=== PATIENT | female | born 1950 | race Caucasian/White ===

== ENCOUNTER 2024-11-04 09:41 | Outpatient (REF) | payer MEDICAID, SELFPAY ==
[2024-11-04 11:35] LABS: Carbamazepine Tegretol 5.5 mcg/mL (5.0-12.0)
== END 2024-11-04 09:42 | disposition home or self-care (01) ==
LOC: HO.LAB 09:41
PROVIDERS: PCP Internal Medicine; Visit Provider Psychiatry & Neurology Neurology
DX: G40.909 Epilepsy, unspecified, not intractable, without status epilepticus (principal)
CPT/HCPCS: 36415; 80156

== ENCOUNTER 2025-05-31 16:04 | Outpatient (AMB) | payer MEDICAID, SELFPAY ==
--- OUTSIDE RECORDS SUMMARY | 2025-05-30 10:00 | XMS_ITS | Encounter Summary ---
Author Organization [facility] Address [address] [place] [address] Care Team Providers Care Refractory Bricklayer Name Role Phone Roxana Valentine MD Primary Care Provider Reason for Visit * Reason Comments Foot Pain Bilateral bunions (P rimary Dx); Arthritis of both feet; Ingrowing right great toenail; Hammertoes of both feet Encounter Details Date Type Department Care Team (Late st Contact Info) Description 05/30/2025 10:00 AM EDT Office Visit Orthopedic Surgery - [place] [address] [facility] [address] [place] [phone] Estrada Payne, DPM 175 [facility] 250 [place] [address] Pain in both feet (Primary Dx); Ingrown right big toenail; Hammertoes of both feet; Arthritis of both feet Social History Tobacco Use Types Packs/Day Years Used Date Smoking Tobacco: Never Smokeless Tobacco: Never Alcohol Use Standard Drinks/Week Comments Not Currently 0 (1 standard drink = 0.6 oz pur e alcohol) Housing Instability Answer Date Recorde d Are you worried that in the next 2 months you may not have stable housing? No 09/16/2024 Food Access & Nutrition Answer Date Rec orded Do you have access to a vari ety of food including fruits and vegetables? Yes 09/16/2024 Access to Healthcare Answer Date Record ed Within the last 3 months, ho w many times did you visit the emergency department for your medical care? 0 09/16/2024 Health Literacy Answer Date Recorded How often do you need to hav e someone help you when you read instructions, pamphlets, or other written material from your doctor or pharmacy? Always 09/16/2024 Caregiver: How often do you need to have someone help you when you read instructions, pamphlets, or other written material from your doctor or pharmacy? Not on file 09/16/2024 Financial Risk Answer Date Recorded How hard is it for you to pa y for the very basics like food, housing, medical care, and air conditioning / heating? Unable to respond 09/16/2024 Transportation Answer Date Recorded Has the lack of transportati on kept you from meetings, work, or from getting things needed for daily living? No Has the lack of transportati on kept you from medical appointments or from getting medications? No 09/16/2024 Social Isolation Answer Date Recorded How often do you feel lonely or isolated from th ose around you? Rarely 09/16/2024 Food Risk Answer Date Recorded Within the past 12 months we worried whether our food would run out before we got money to buy more. Never true 09/16/2024 Within the past 12 months th e food we bought just didn't last and we didn't have money to get more. Never true 09/16/2024 Dependent Care Answer Date Recorded Do you need help finding or paying for care for your loved ones. For example, child care centre manager or elderly care for an older adult? No 09/16/2024 Education Answer Date Recorded Do you think completing more education or training, like finishing a GED, going to college, or learning a trade, would be helpful for you? Unable to respond 09/16/2024 Employment and Income Answer Date Recor ded During the last four weeks, have you been actively looking for work? No 09/16/2024 Living Situation Answer Date Recorded What is your living situation? Unrecognized valu e 09/16/2024 Comments No Sex and Gender Information Value Date Recorded Sex Assigned at Not on file Legal Sex Female 8:04 AM EST Gender Identity Not on file Sexual Orientation Not on file documented as of this encounter Progress Notes * Estrada Payne DPM - 05/30/2025 10:00 AM EDT Referring MD: Jose Last PCP visit: 02/25/2025 IDENTIFIER: Rosita is a 75 y.o. year old female who presents for consultation. CC: Bilateral foot pain HPI: 75-year-old female returns office with chief complaint of bilateral foot pain. Patient notes that she has continued pain within the right and left toes. Patient has had ingrown toenails in the past and is using soaking exercises. Patient notes her nails continue be thickened and misshapened causingpain when ambulating longer distances. ROS: GENERAL: Pt denies nausea, fever, vomiting, chills, or shortness of breath. Pt in NAD. CARDIOLOGY: pt denies chest pain, palpitations LUNGS: pt denies shortness of breath MUSCULOSKELETAL: See HPI, otherwise no joint pain or swelling, back pain, or muscle pain. SKIN: see HPI, otherwise no lesions, rash or itching NEURO: No persistent headache, weakness or numbness The remainder of the review of systems is noncontributory PAST MEDICAL HISTORY: Patient Active Problem List Diagnosis Syncope SOB (shortness of breath) Seizure disorder (CMS/HCC V24, CMS/HCC V28) Osteopenia Hypertension Hyperlipidemia Gastroesophageal reflux disease Bradycardia Bile reflux gastritis Adenomatous polyp of colon Pacemaker SOCIAL HISTORY: Social History Tobacco Use Smoking status: Never Smokeless tobacco: Never Substance Use Topics Alcohol use: Not Currently ACTIVE MEDICATIONS: No outpatient medications have been marked as taking for the 05/30/25 encounter (Office Visit) Tabitha Payne DPM. ALLERGIES: @ALL@ PHYSICAL EXAM: There were no vitals taken for this visit. PODIATRIC EXAMINATION: GENERAL: Patient appears well nourished, with NAD. VASCULAR: Dorsalis pedis pulses are 2/4 bilaterally and Posterior tibial pulses are 2/4 bilaterally. Capillary filling time within normal limits the digits. No pallor on elevation or rubor on dependency. Positive hair growth. Some varicosities. +2 pitting edema. Denies rest pain or claudication pain. NEUROLOGICAL: Sharp/dull sensation intact, protective sensation intact 10/10 with 5.07 semmes tank bilaterally, vibratory sensation with tuning fork intact to the tibial tuberosity. ORTHOPEDIC: Good muscle strength 5/5 of all flexors and extensors. Dorsi flexion of ankle ,10 degrees, plantar flexion WNL. No muscle atrophy. Continued arthritic changes to the tarsometatarsal jointbilaterally with palpable dorsal exostoses. Rigidly contracted digits 2 through 5 bilaterally. Continued bunion deformities bilaterally left greater than right with moderate HAV deformity. Curvature to the digits 2 through 5 DERMATOLOGICAL: Dry skin to the bottoms of the feet bilaterally. No purulent drainage. Return of pain to the medial lateral border of the great toes bilaterally BIOMECHANICS: STJ ROM wnl, MTJ ROM wnl, 1st MPJ ROM wnl. IMPRESSION: 1. Pain in both feet 2. Ingrown right big toenail 3. Hammertoes of both feet 4. Arthritis of both feet PLAN: Pt was seen and examined, history reviewed. Patient continues to have arthritic changes of the midtarsal joint secondary to arthritic breakdownof midtarsal joint. Patient instructed to wear more supportive insole in her shoe in order to limitthis pain Patient was once again educated on the use of assistive devices to ambulate if her balance feels unsteady. Patient encouraged to continue with increasing her activity level and walking as this will improve her stability and stance Patient was once again educated that she may require matrixectomy at a later date in order to prevent return of the ingrowth to the toenails which is causing pain on ambulation and close toed shoes Patient ducted to continue with current topical and antifungal medication to the nails in order to reduce thickness and discoloration Was once again educated on her bunion deformity and possible surgical intervention. Patient is happy with the current regimen she is taking Estrada Payne DPM documented in this encounter Plan of Treatment Upcoming Encounters Date Type Department Care Team (Late st Contact Info) Description 06/02/2025 10:00 AM EDT Office Visit Urogynecology [address] [phone] Wen Benitez MD 580 [facility] [address] [place] [address] 06/09/2025 9:30 AM EDT Office Visit Orthopedic Surgery - [place] 175 [facility] 140 [place] [phone] Francesco Li MD 175 [place] [address] 06/28/2025 3:00 PM EST Office Visit Adult Medicine [facility] 230 [place] [address] Jose Alfredo Garcia PA 230 [place] [address] 07/14/2025 10:30 AM EST Office Visit Vascular Surgery - [place] [address] [facility] 210 [place] [phone] Sumaya Patel MD 230 [place] [phone] 07/28/2025 8:45 AM EST Office Visit Orthopedic Surgery - [place] [address] [facility] [address] [place] [address] Estrada Payne, DPM 175 [facility] 250 [place] [address] documented as of this encounter Visit Diagnoses Diagnosis Pain in both feet- Primary Ingrown right big toenail Ingrowing nail Hammertoes of both feet Arthritis of both feet documented in this encounter Additional Health Concerns Assessment Noted Time PHQ-9 Depression Total Score: 7 09/16/19 25 1:25 PM EST documented as of this encounter Care Teams Refractory Bricklayer Relationship Specialty Start Date End Date Roxana Valentine MD 101 [facility] 214 [place] [address] PCP - General Internal Medicine 11/16/21 documented as of this encounter
--- OUTSIDE RECORDS SUMMARY | 2025-05-31 09:00 | XMS_ITS | Encounter Summary ---
Author Organization [facility] Address [address] [place] [address] Care Team Providers Care Security Guard Supervisor Name Role Phone Roxana Valentine MD Primary Care Provider Reason for Visit * Reason Comments Pain Consult * Consultation (Routine) - Authorized Specialty Diagnoses / Procedures Referred By Reji granados Referred To Contact Orthopaedic Surgery Diagnoses Paronychia of finger of left hand Roxana Valentine MD 230 [place] [address] Phone: tel: fax: Celine Andrade PA 174 [facility] 140 [place] [address] Phone: tel: fax: Referral ID Status Reason Start Date Expiration Date Visits Requested Visits Authorized [id number] Authorized Specialty Services Required 02/25/2025 02/25/2026 1 1 Encounter Details Date Type Department Care Team ([facility] st Contact Info) Description 05/31/2025 9:00 AM EDT Consult Orthopedic Surgery - [place] 175 [facility] 140 [place] [phone] Celine Andrade PA [address] [place] [phone] Mucous cyst of digit of hand (Primary Dx) Social History Tobacco Use Types Packs/Day Years [...] care for your loved ones. For example, vocational childcare teacher or elderly care for an older adult? [...] on file documented as of this encounter Last Filed Vital Signs Vital Sign Reading Time Taken Comments Blood Pressure - - Pulse - - Temperature - - Respiratory Rate - - Oxygen Saturation - - Inhaled Oxygen Concentration - - Weight 74.4 kg (164 lb) 05/31/2025 9:01 AM EDT Height 152.4 cm (5') 05/31/2025 9:01 AM EDT Body Mass Index 32.03 05/31/2025 9:01 AM EDT documented in this encounter Progress Notes * VERNON Farris - 05/31/2025 9:00 AM EDT Images from the original note were not included. Referring MD:Roxana Valentine* Ms. Becker is a 75 y.o. year old female who presents for consultation regarding Chief Complaint Patient presents with Left Middle Finger - Pain, Consult . HPI: 75-year-old zlhlm-mcyn-kfeceacy female chief complaint of left long finger pain, cyst and infection. Patient is Swazi-speaking and her daughter is aiding in interpreting and history. Patient has had a mucous cyst at the left long finger for 2 to 3 years. It intermittently gets inflamed and painful. Over this past year she has been on antibiotics twice by her primary. She is not currently on antibiotics. She has been soaking the finger in Epsom salt. Sometimes there is some yellowish drainage from the cyst. No diabetes she does have a pacemaker. PAST MEDICAL HISTORY: Medical History[1] PAST SURGICAL HISTORY: Surgical History[2] ACTIVE PROBLEMS LIST: Problem List[3] ACTIVE MEDICATIONS: Medications Taking[4] ALLERGIES: Current Allergies[5] PHYSICAL EXAM: Visit Vitals Ht 1.524 m (60 ) Wt 74.4 kg (164 lb) BMI 32.03 kg/m?? OB Status Postmenopausal Smoking Status Never BSA 1.72 m?? APPEARANCE: Alert and in no acute distress EXTREMITIES: Left long finger significant osteoarthritis at the DIP joint. Ridging of the nail and mucous cyst that is mildly inflamed. She can make a light fist. LABS: none IMAGING: none ASSESSMENT AND PLAN: 1. Mucous cyst of digit of hand The details of the visit were reviewed with the patient. Pertinent history, and objective findings were reviewed, along with the diagnoses: Left long finger mucous cyst. Discussed with patient treatment options. Discussed soaking the finger, discussed aspiration and discussed excisional biopsy under local. This has been there for 2 to 3 years and is bothersome. Would not recommend any further antibiotics. She wishes to consult regarding excision and an appointment was made for her to see . Aida Becker acknowledges understanding of the above plan and agrees to follow recommendations and/or take medications as prescribed. 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 Scaphoid fracture of wrist DX:Scaphoid fracture of wrist [2] Past Surgical History: Procedure Laterality Date CARDIAC SURGERY 1998 PROCEDURE: HISTORICAL HEART SURGERY(ASD,VSD,VALVES); COMMENT: cyst removal CHOLECYSTECTOMY 2017 PROCEDURE: HISTORICAL CHOLECYSTECTOMY OTHER SURGICAL HISTORY 1992 PROCEDURE: LA GSTRCT PRTL DSTL W/GASTRODUODENOSTOMY; COMMENT: due to stomah ulcer [3] Patient Active Problem List Diagnosis Syncope SOB (shortness of breath) Seizure disorder (CMS/HCC V24, CMS/HCC V28) Osteopenia Hypertension Hyperlipidemia Gastroesophageal reflux disease Bradycardia Bile reflux gastritis Adenomatous polyp of colon Pacemaker [4] No outpatient medications have been marked as taking for the 05/31/25 encounter (Consult) with VERNON Tiwari. [5] No Known Allergies documented in this encounter Plan of Treatment Upcoming Encounters Date Type Department Care Team (Late st Contact Info) Description 06/02/2025 10:00 AM EDT Office Visit Urogynecology - [place] [address] [place] [address] Wen Benitez MD 580 [facility] [address] [place] [address] 06/09/2025 9:30 AM EDT Office Visit Orthopedic Surgery [facility] 175 [facility] 140 [place] [address] Francesco Li MD 175 [place] [address] 06/28/2025 3:00 PM EST Office Visit Adult Medicine [facility] 230 [place] [address] Jose Alfredo Garcia PA [address] [place] [address] 07/14/2025 10:30 AM EST Office Visit Vascular Surgery [facility] [address] [place] [phone] Sumaya Patel MD [address] [place] [address] 07/28/2025 8:45 AM EST Office Visit Orthopedic Surgery - [place] [address] [facility] 250 [place] [address] Estrada Payne DPM 175 [facility] 250 [place] [address] documented as of this encounter Visit Diagnoses Diagnosis Mucous cyst of digit of hand- Primary documented in this encounter Orders Outpatient Referral Count Last Ordered Date On License Of [facility] st Ordered Date AMB REFERRAL TO ORTHOPEDIC 1 05/31/2025 documented in this encounter Additional Health Concerns Assessment Noted Time PHQ-9 Depression Total Score: 7 09/16/19 25 1:25 PM EST documented as of this encounter Care Teams Security Guard Supervisor Relationship Specialty Start Date End Date Roxana Valentine MD [address] [place] [address] PCP - General Internal Medicine 11/16/21 documented as of this encounter
--- NOTE | 2025-05-31 16:09 | MHC.OFFVIS ---
Intake Visit Reasons: 6 months f/u Electrical Engineering Intern Services: Electrical Engineering Intern Offered & Declined (daughter to translate) Accompanied by: Daughter Allergies No Known Allergies Allergy (Verified 05/31/25 16:14) Medication List - Last Reconciled 05/31/25 by Elizabeth Carter CNP aspirin 81 mg PO DAILY carbamazepine 100 mg PO BID diclofenac sodium 1% grams topical BID PRN fluoxetine 10 mg PO DAILY losartan 25 mg PO DAILY meclizine 25 mg PO TID PRN pyridoxine (vitamin B6) 50 mg PO DAILY rosuvastatin 10 mg PO DAILY sucralfate 10 mL PO QID HPI Comments Details: Taking carbamazepine 100mg twice a day. No seizures. For the last 2-3 months or so, she has been getting severe headache daily lasting 5 minutes each time. She described pain as dull and was usually to sides of head. No specific trigger identified. No jaw pain or claudication. No cold or flu-like illness. No falls. She had some dizziness and nausea in the car when turning and occasionally when turning in bed, and interested in vestibular therapy. Had PT for low back pain down right leg, worse with activity. This pain?happened about 1-2x/year, around spring and fall. On no seizure meds for 3 weeks since 05/04/2024. She compliants of side effects from Depakote with eyes feeling puffy. She stopped it. Then CBZ was sent, but she says she had side effects with it in [facility] so she did not start it. Then Lamotrigine was given but she read of possible side effects so did not start it. No further epiosdes of syncope since 08/23/23. She felt very weak for a minute . She was tight in her hands but no convulsions. No incontinence or tongue bite. Pacemaker is fine according to cardiology. 30 secs of confusion. Two previous presyncopal episodes for 5-7 minutes. No LOC. She has elevated BP. Then she feels a sh soind in her head. She has a history of recurrent syncope since the age of 25 with multiple fainting episodes with 5 time sduring with daughter. [facility] 2/ yr . In April 2022, she had a pacemaker inserted. Since then she's had one presyncopal episodes and another syncopal episode in March 2023 during which she suddenly fell while walking with a friend without any warning. She had a small fracture in the right hand. Since then she's felt fine. There's no chest pain or palpitation. There was no witnessed seizure. She has no history of coronary artery disease. The pacemaker was inserted because of periods of bradycardia She was on Keppra for a few months and then she started to feel sleepy and dizzy with it , so she stopped it 2 weeks ago. She is feeling better. [facility] Medical History (Updated 05/31/25 @ 16:23 by Elizabeth Cartre CNP) Dizziness Lumbar radiculopathy Syncope Review of Systems Const Denies chills, Denies daytime sleepiness, Reports difficulty sleeping, Denies fatigue, Denies fever(s), Denies frequent falls, Reports headache(s), Denies increased appetite, Denies poor appetite, Denies snoring, Denies weakness, Denies weight gain and Denies weight loss Eyes Denies loss of vision ENT Denies vertigo, Reports dizziness, Reports headache(s) and Denies neck pain Card Denies chest pain at rest, Denies chest pain with activity, Denies syncope, Denies leg edema, Denies palpitations, Denies dyspnea and Denies dyspnea on exertion Resp Denies cough, Denies dyspnea, Denies dyspnea on exertion and Denies snoring GI Denies abdominal pain, Denies constipation, Denies heartburn, Denies diarrhea and Denies nausea Denies urinary frequency, Denies urinary incontinence and Denies urinary urgency Musc Denies abnormal gait, Reports back pain, Denies myalgias, Denies arthralgias, Denies neck pain, Denies numbness and Denies tingling Neuro Denies abnormal gait, Denies vertigo, Reports dizziness, Denies syncope, Denies frequent falls, Reports headache(s), Denies lack of coordination, Denies loss of vision, Denies memory loss, Denies numbness, Denies Other visual disturbances, Denies restless legs, Denies seizure-like activity, Denies tingling, Denies paresthesias, Denies tremor(s) and Denies weakness Psych Denies anxiety, Denies depression, Denies auditory hallucinations, Denies memory loss and Denies visual hallucinations Endo Denies fatigue and Denies palpitations Physical Exam Const Other: General Appearance:? normal, in no acute distress. Heart:? S1, S2 normal, no murmurs. Lungs:? clear anteriorly and posteriorly. Musculoskeletal:? normal. Extremities:? no edema. Psych:? alert, oriented, cognitive function intact, cooperative with exam. Neuro Other: Abnormal Neurological Findings:?none.? Mental Status: alert and oriented X 3. Normal attention, orientation, memory, and affect. Cranial Nerves: Pupils are equal, round, and reactive to light. External ocular muscles are intact. Visual santillan are full, no ptosis. Face is symmetrical, no facial weakness or droop. Facial sensations are normal. Tongue protrudes in midline. Palate elevates symmetrically. Shoulder shrugging is normal Motor Examination: Normal muscle tone, bulk and strength. No atrophy or fasciculations. No drift of the extended upper extremities. DTR 2+. Plantars are flexor. Sensory Exam: Normal light touch, temperature, pinprick, vibration, and joint-position sensations. Rhomberg sign is absent. Coordination: No ataxia. No titubation. Gait Exam: Within normal limits. Cerebellar Signs: [id number] is okay. Extrapyramidal System: No tremor, rigidity with normal facial expressions. No bradykinesia. No bradyphrenia. Normal arm swing and posture. No propulsion or retropulsion. Speech: Normal. 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 Assessment & Plan Assessment & Plan (1) Seizure disorder: Code(s): G40.909 - Epilepsy, unspecified, not intractable, without status epilepticus Category: Medical Plan: Continue carbamazepine 200mg 1/2 tablet twice a day. (2) Dizziness: Code(s): R42 - Dizziness and giddiness Category: Medical Plan: She was interested in vestibular therapy and order was placed. (3) Migraine: Code(s): G43.909 - Migraine, unspecified, not intractable, without status migrainosus Category: Medical Qualifiers: Migraine type: unspecified Status migrainosus presence: without status migrainosus Intractability: not intractable Qualified Code(s): G43.909 - Migraine, unspecified, not intractable, without status migrainosus Plan: Reviewed labs ordered. CT scan ordered. Orders: Orders PT Evaluation and Treatment Today R42 - Dizziness and giddiness CT head/brain wo IV con Today G43.909 - Migraine, unspecified, not intractable, without status migrainosus Erythrocyte Sedimentation Rate Today G43.909 - Migraine, unspecified, not intractable, without status migrainosus C Reactive Protein Today G43.909 - Migraine, unspecified, not intractable, without status migrainosus Medications: New carbamazepine 100 mg (1/2 x 200 mg) PO BID 90 tabs 1RF 90 days Coding Level of Care Code Est Pt Level 4 (67288) Diagnoses Seizure disorder G40.909 Dizziness R42 Migraine without status migrainosus, not intractable, unspecified migraine type G43.909 Migraine type: unspecified Status migrainosus presence: without status migrainosus Intractability: not intractable
--- OUTSIDE RECORDS SUMMARY | 2025-05-31 20:57 | XMS_ITS | Clinical Summary ---
Author Organization [facility] Address [address] [place] [address] Phone Care Team Providers Care Will Call Clerk Name Role Phone Roxana Valentine MD Primary Care Provider Allergies No known active allergies Medications sucralfate (CARAFATE) 100 mg/mL suspension TAKE 10 ML BY MOUTH 4 TIMES DAILY 1200 mL 11 06/15/20 24 Active meclizine (ANTIVERT) 25 mg tablet Take 1 Tablet by mouth 3 times daily as needed (Dizziness). 05/19/20 24 Active syringe,safety 1 mL,disp unit (SYRINGE-NEEDLE ,SAFETY,DISP UNT MISC) ADMIN B12 injection once per week for 4 weeks and then monthly for 3 months thereafter 02/13/20 23 Active losartan (COZAAR) 25 mg tablet TAKE 1 TABLET BY MOUTH EVERY DAY 90 tablet 1 01/22/20 25 Active carBAMazepine (CARBATROL) 100 mg 12 hr capsule Take 1 capsule (100 mg total) by mouth 2 (two) times a day. Do not crush or chew. Active cyanocobalamin (VITAMIN B-12) 1,000 mcg/mL injectionIndica tions:Vitamin B12 deficiency Inject 1 mL (1,000 mcg total) into the shoulder, thigh, or buttocks every 30 (thirty) days. 1 mL 1 02/26/20 25 Active pyridoxine (B-6) 50 mg tablet Take 1 tablet (50 mg total) by mouth 1 (one) time each day. 90 tablet 2 03/01/20 25 Active aspirin 81 mg EC tablet TAKE 1 TABLET BY MOUTH EVERY DAY 90 tablet 04/18/20 25 Active FLUoxetine (PROzac) 10 mg tabletIndicatio ns:Post-traumat ic stress disorder, unspecified TAKE 1 TABLET DAILY 90 tablet 04/18/20 25 Active rosuvastatin (CRESTOR) 10 mg tabletIndicatio ns:Hyperlipidem ia, unspecified TAKE 1 TABLET BY MOUTH EVERY DAY 90 tablet 04/25/20 25 Active diclofenac (VOLTAREN) 1 % topical gelIndications: Lumbago with sciatica, left side APPLY TO LOWER BACK TWICE DAILY NEEDED FOR BACK PAIN 100 g 05/31/20 25 Active diclofenac (VOLTAREN) 1 % topical gelIndications: Lumbago with sciatica, left side APPLY TO LOWER BACK TWICE DAILY NEEDED FOR BACK PAIN 100 g 4 08/27/19 25 025 Discontinued Active Problems Problem Noted Date Diagnosed Date Seizure disorder ([facility] V24, [facility] V28) 10/2023 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 Pacemaker 05/28/2022 Osteopenia 03/28/2022 Syncope 03/04/2022 Overview (06/30/2024): Last Assessment & Plan: I suspect she could have orthostatic pressure drop sometimes. I encouraged her to drink more fluid. I will discontinue losartan. He has a compressive stocking and I suggest her to wear consistently when she is standing up. Hypertension 01/08/2022 Overview (06/30/2024): Last Assessment & Plan: We will discontinue hydrochlorothiazide and add losartan. Hyperlipidemia 01/08/2022 Gastroesophageal reflux disease 01/08/2022 Bradycardia 01/08/2022 Overview (06/30/2024): Last Assessment & Plan: Status post pacemaker implantation. Encounters Date Type Department Care Team Description 05/31/2025 9:00 AM EDT Consult Orthopedic Surgery [facility] [address] [facility] [address] [place] [address] Celine Andrade PA Mucous cyst of digit of hand (Primary Dx) 05/30/2025 10:00 AM EDT Office Visit Orthopedic Surgery [facility] [address] [facility] [address] [place] [phone] Estrada Payne DPCristal Pain in both feet (Primary Dx); Ingrown right big toenail; Hammertoes of both feet; Arthritis of both feet 04/19/2025 Telephone Adult [place] [address] [place] [address] Dee Sam ME 03/01/2025 9:00 AM EDT Office Visit Orthopedic Surgery [facility] [address] [facility] [address] [place] [phone] Estrada Payne DPM Pain in both feet (Primary Dx); Ingrown right big toenail; Hammertoes of both feet; Arthritis of both feet from Last 3 Months Surgical History Surgery Date Site/Laterality Comments OTHER SURGICAL HISTORY 1992 PROCEDURE: NE GSTRCT PRTL DSTL W/GASTRODUODENOSTOMY; COMMENT: due to stomah ulcer CARDIAC SURGERY 1998 PROCEDURE: HISTORICAL HEART SURGERY(ASD,VSD,VALVES); COMMENT: cyst removal CHOLECYSTECTOMY 2017 PROCEDURE: HISTORICAL CHOLECYSTECTOMY Medical History Medical History Date Comments HTN (hypertension) DX:HTN (hyper tension) Bradycardia DX:Bradycardia History of stomach ulcers DX:His tory of stomach ulcers Mixed hyperlipidemia DX:Mixed hy perlipidemia GERD (gastroesophageal reflu x disease) DX:GERD (gastroesophageal re flux disease) Osteopenia 03/28/2022 DX:Osteopenia Adenomatous polyp of colon 04/19/2023 DX:Ad enomatous polyp of colon Scaphoid fracture of wrist DX:Sc aphoid fracture of wrist 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 For example, early childhood teacher assistant or elderly care for an older adult? [...] on file Sexual Orientation Not on file Obstetrics History Last Filed Vital Signs Vital Sign Reading Time Taken Comments Blood Pressure 122/68 02/25/2025 8:30 AM EDT Pulse 72 02/25/2025 8:30 AM EDT Temperature 35.7 C (96.3 F) 02/25/2025 8:30 AM EDT Respiratory Rate 16 02/25/2025 8:30 AM EDT Oxygen Saturation - - Inhaled Oxygen Concentration - - Weight 74.4 kg (164 lb) 05/31/2025 9:01 AM EDT Height 152.4 cm (5') 05/31/2025 9:01 AM EDT Body Mass Index 32.03 05/31/2025 9:01 AM EDT Plan of Treatment Upcoming Encounters Date Type Department Care Team (Late st Contact Info) Description 06/02/2025 10:00 AM EDT Office Visit Urogynecology [address] [phone] Wen Benitez MD [address] [place] [address] [address] [place] [address] 06/09/2025 9:30 AM EDT Office Visit Orthopedic Surgery - [place] 175 [facility] [address] [place] [phone] Francesco Li MD [address] [place] [address] 06/28/2025 3:00 PM EST Office Visit Adult Medicine [facility] [address] [place] [phone] Jose Alfredo Garcia PA [address] [place] [address] 07/14/2025 10:30 AM EST Office Visit Vascular Surgery - [place] [address] [place] [address] Sumaya Patel MD [address] [place] [phone] 07/28/2025 8:45 AM EST Office Visit Orthopedic Surgery - [place] [address] [place] [phone] Estrada Payne, DPM [address] [place] [address] [place] [address] Health Maintenance Due Date Last Done Comments DTaP,Tdap,and Td Vaccines (1 - Tdap) 02/14/1967 Pneumococcal Vaccine: 50+ Years (1 of 1 - PCV) 02/14/1998 Zoster Vaccines (1 of 2) 02/14/1998 Hepatitis C Screening 07/21/2022 RSV Immunization Adult Patients (1 - 1-dose 75+ series) 02/14/2023 COVID-19 Vaccine ( - 2023-2 5 season) 2025 Influenza Vaccine (#1) 2025 Social Influencers of Health Screening 09/16/2025 09/16/2024 Falls Risk Assessment 12/28/2025 12/28/2024 Hypertension/CHF/CAD Annual BMP Blood Test 02/25/2026 02/25/2025, 01/23/2024, 01/23/2024 Cholesterol Screening (Lipid Panel) 02/25/2030 02/25/2025, 07/16/2023 Osteoporosis Screening (Bone Density Screening) 03/27/2032 03/27/2022 Breast Cancer Screening Discontinued 04/01/20 23, 03/27/2022 Depression Screening Completed 09/16/2024 HIB Vaccines Aged Out No longer eligi ble based on patient's age to complete this topic HPV Vaccines Aged Out No longer eligi ble based on patient's age to complete this topic Hepatitis A Vaccines Aged Out No long er eligible based on patient's age to complete this topic Hepatitis B Vaccines Aged Out No long er eligible based on patient's age to complete this topic IPV Vaccines Aged Out No longer eligi ble based on patient's age to complete this topic MMR Vaccines Aged Out No longer eligi ble based on patient's age to complete this topic Meningococcal ACWY Vaccine Aged Out N o longer eligible based on patient's age to complete this topic Meningococcal B Vaccine Aged Out No l onger eligible based on patient's age to complete this topic RSV Immunization Patients Under 20 months Aged Out No longer eligible based on patient's age to complete this topic Varicella Vaccines Aged Out No longer eligible based on patient's age to complete this topic Procedures Procedure Name Priority Date/Time Associated Diagnosis Comments COMPREHENSIVE METABOLIC PANEL Routine 02/25/2025 9:25 AM EDT Primary hypertension Pacemaker Vitamin B12 deficiency Mixed hyperlipidemia Seizure (CMS/HCC V24, CMS/HCC V28) Varicose veins of leg with swelling, bilateral Urinary incontinence, unspecified type Leg cramping LIPID PANEL WITH REFLEX TO DIRECT LDL Routine 02/25/2025 9:25 AM EDT Primary hypertension Pacemaker Vitamin B12 deficiency Mixed hyperlipidemia Seizure (CMS/HCC V24, CMS/HCC V28) Varicose veins of leg with swelling, bilateral Urinary incontinence, unspecified type Leg cramping SCREENING MAMMOGRAPHY BI 2-VIEW BREAST INC CAD Routine 04/01/2023 4:26 PM EDT Encounter for screening mammogram for malignant neoplasm of breast DXA BONE DENSITY STUDY 1+ SITS AXIAL SKEL Routine 03/27/2022 10:56 AM EDT Encounter for screening for osteoporosis from Last 3 Months or Most Recently Relevant to Health Maintenance Results * Lipid panel with reflex to direct LDL (02/25/2025 9:25 AM EDT) Cholesterol 154 0 - 200 mg/dL LAB CHEMISTRY METHOD 02/25/2025 12:14 PM EDT [facility] Triglycerides 121 0 - 150 mg/dL LAB CHEMISTRY METHOD 02/25/2025 12:14 PM EDT [facility] HDL 59 >=40 mg/dL LAB CHEMISTRY METHOD 02/25/2025 12:14 PM EDT [facility] LDL Calculated 71 0 - 100 mg/dL LAB CHEMISTRY METHOD 02/25/2025 12:14 PM EDT [facility] VLDL Cholesterol Sachin 24.2 mg/dL LAB CHEMISTRY METHOD 02/25/2025 12:14 PM T [facility] Non HDL Chol. (LDL+VLDL) 95 <145 mg/dL LAB CHEMISTRY METHOD 02/25/2025 12:14 PM [facility] Chol/HDL Ratio 2.6 0.0 - 4.4 LAB CHEMISTRY METHOD 02/25/2025 12:14 PM T [facility] Blood Venous blood specimen / Unknown Venipuncture / Unknown 02/25/2025 9:25 AM EDT 02/25/2025 9:25 AM EDT us Roxana Valentine MD LAB BLOOD ORDERABLES F inal Result [facility] [address] [place] [address], [place] [phone] * Comprehensive metabolic panel (02/25/2025 9:25 AM EDT) Sodium 136 133 - 145 mmol/L LAB CHEMISTRY METHOD 02/25/2025 12:14 PM [facility] Potassium 4.4 3.5 - 5.5 mmol/L LAB CHEMISTRY METHOD 02/25/2025 12:14 PM [facility] Chloride 104 96 - 110 mmol/L LAB CHEMISTRY METHOD 02/25/2025 12:14 PM [facility] CO2 26 21 - 32 mmol/L LAB CHEMISTRY METHOD 02/25/2025 12:14 PM [facility] Anion Gap 6 3 - 11 LAB CHEMISTRY METHOD 02/25/2025 12:14 PM [facility] Glucose 98 70 - 100 mg/dL LAB CHEMISTRY METHOD 02/25/2025 12:14 PM [facility] BUN 15 5 - 25 mg/dL LAB CHEMISTRY METHOD 02/25/2025 12:14 PM [facility] Creatinine 0.70 0.50 - 1.10 mg/dL LAB CHEMISTRY METHOD 02/25/2025 12:14 PM [facility] eGFR 89 >=60 mL/min/1. 73m2 LAB CHEMISTRY METHOD 02/25/2025 12:14 PM [facility] Comment:Calculation based on the Chronic Kidney Disease Epidemiology Collaboration (CKD-EPI) equation refit without adjustment for race. BUN/Creatinine Ratio 21.4 LAB CHEMISTRY METHOD 02/25/2025 12:14 PM [facility] Calcium 9.2 8.5 - 10.5 mg/dL LAB CHEMISTRY METHOD 02/25/2025 12:14 PM [facility] AST (SGOT) 23 10 - 42 unit/L LAB CHEMISTRY METHOD 02/25/2025 12:14 PM [facility] ALT (SGPT) 35 10 - 60 unit/L LAB CHEMISTRY METHOD 02/25/2025 12:14 PM [facility] Alkaline Phosphatase 114 42 - 121 unit/L LAB CHEMISTRY METHOD 02/25/2025 12:14 PM [facility] Total Protein 6.8 6.0 - 8.0 g/dL LAB CHEMISTRY METHOD 02/25/2025 12:14 PM [facility] Albumin 3.8 3.2 - 5.0 g/dL LAB CHEMISTRY METHOD 02/25/2025 12:14 PM [facility] Total Bilirubin 0.4 0.0 - 1.4 mg/dL LAB CHEMISTRY METHOD 02/25/2025 12:14 PM [facility] Blood Venous blood specimen / Unknown Venipuncture / Unknown 02/25/2025 9:25 AM EDT 02/25/2025 9:25 AM EDT Roxana Valentine MD LAB BLOOD ORDERABLES F inal Result [facility] [address] [place] [address], [place] [phone] * SCREENING MAMMOGRAPHY BI 2-VIEW BREAST INC CAD (04/01/2023 4:26 PM EDT) Anatomical Region Laterality Modality Radiographic Ana ging 03/27/2022 10:2 5 AM EDT Narrative 04/02/2023 12:48 PM EDT This is a summary report. The complete report is available in the patient's medical record. If you cannot access the medical record, please contact the sending organization for a detailed fax or copy. Exam: Screening mammogram Findings: Digital bilateral full-field screening mammography is performed with tomosynthesis and interpreted with the aid of computer-aided detection. Comparison is made with 03/27/2022. Pacemaker battery pack superimposes portions of the left axillary region limiting regional assessment. Breast parenchyma is composed of scattered fibroglandular densities. No new suspicious mass, architectural distortion, or suspicious calcifications. Impression: No mammographic evidence of malignancy. BI-RADS 1 - negative Procedure Note Chelsea Bergeron MD - 09/15/2023 This is a summary report. The complete report is available in thepatient's medical record. If you cannot access the medical record, pleasecontact the sending organization for a detailed fax or copy. Exam: Screening mammogram Findings: Digital bilateral full-field screening mammography is performedwith tomosynthesis and interpreted with the aid of computer-aideddetection. Comparison is made with 03/27/2022. Pacemaker battery packsuperimposes portions of the left axillary region limiting regionalassessment. Breast parenchyma is composed of scattered fibroglandular densities. Nonew suspicious mass, architectural distortion, or suspiciouscalcifications. Impression: No mammographic evidence of malignancy. BI-RADS 1 - negative [facility] XR PROCEDURES Final Re sult * DXA BONE DENSITY STUDY 1+ SITS AXIAL SKEL (03/27/2022 10:56 AM EDT) Anatomical Region Laterality Modality Bone Densitometr y 01/08/2022 9:15 AM EDT Narrative 03/27/2022 5:26 PM EDT Clinical history: other(see comments) Scans of the lumbar spine and hips were performed on a [employer] fan beam bone densitometer. Bone mineral density measurements and associated T and Z scores respectively are as follows: Lumbar Spine: L1-L4 BMD: 0.889 g/cm2 T-Score: -1.4 Z-Score: 0.9 Left Proximal Femur: Neck BMD: 0.645 g/cm2 T-Score: -1.8 Z-Score: 0.2 Total BMD: 0.759 g/cm2 T-Score: -1.5 Z-Score: 0.2 Compared with standards for the young adult, lowest measured bone density places the patient in the W.H.O. osteopenic range. FRAX 10 year probability of major osteoporotic fracture: 12% FRAX 10 year probability of hip fracture: 2.5% Population: [place] () IMPRESSION: IMPRESSION: Osteopenia. The NOF guidelines recommend that FDA approved medical therapies be considered in postmenopausal women and men age >50 years with a: i. Hip or vertebral (clinical or morphometric) fracture ii. T score of < -2.5 at the spine or hip iii. 10 year fracture probability by FRAX of >3% for hip fracture, or >20% for major osteoporotic fracture PLEASE NOTE: W.H.O. classification is based on lowest measured density at the spine, femoral neck, or total hip.This classification has prognostic significance when applied to post menopausal women and older men. 1) The World Health Organization defines low BMD as follows: T-score Normal at or > -1 Osteopenia < -1 and > -2.5 Osteoporosis at or < -2.5 without fractures Established osteoporosis < -2.5 with fractures Procedure Note Damian Sheppard MD - 07/30/2022 Clinical history: other(see comments) Scans of the lumbar spine and hips were performed on a [employer] beam bone densitometer. Bone mineral density measurements and associated T and Z scoresrespectively are as follows: Lumbar Spine: L1-L4 BMD: 0.889 g/cm2 T-Score: -1.4 Z-Score: 0.9 Left Proximal Femur: Neck BMD: 0.645 g/cm2 T-Score: -1.8 Z-Score: 0.2 Total BMD: 0.759 g/cm2 T-Score: -1.5 Z-Score: 0.2 Compared with standards for the young adult, lowest measured bone densityplaces the patient in the W.H.O. osteopenic range. FRAX 10 year probability of major osteoporotic fracture: 12% FRAX 10 year probability of hip fracture: 2.5% Population: [place] () IMPRESSION: IMPRESSION: Osteopenia. The NOF guidelines recommend that FDA approved medical therapies beconsidered in postmenopausal women and men age >50 years with a: i. Hip or vertebral (clinical or morphometric) fracture ii. T score of < -2.5 at the spine or hip iii. 10 year fracture probability by FRAX of >3% for hip fracture, or >20%for major osteoporotic fracture PLEASE NOTE: W.H.O. classification is based on lowest measured density at the spine,femoral neck, or total hip.This classification has prognostic significance when applied to postmenopausal women and older men. 1) The World Health Organization defines low BMD as follows: T-score Normal at or > -1 Osteopenia < -1 and > -2.5 Osteoporosis at or < -2.5 withoutfractures Established osteoporosis < -2.5 with fractures [facility] DXA PROCEDURES Final R esult from Last 3 Months or Most Recently Relevant to Health Maintenance Insurance [place] Care Teams Will Call Clerk Relationship Specialty Start Date End Date Roxana Valentine MD [address] [place] [phone] PCP - General Internal Medicine 11/16/21
--- OUTSIDE RECORDS SUMMARY | 2025-05-31 20:57 | XMS_ITS | Clinical Summary ---
Author Organization [facility] Address [address] [place] [address] Care Team Providers Care Shorts Sifter Name Role Phone Unavailable Primary Care Provider Unavailabl e Source Comments PLEASE NOTE, if this patient is a minor, it may be UNLAWFUL to discuss sensitive information that is contained in these records (such as FAMILY PLANNING, MENTAL HEALTH or SUBSTANCE ABUSE) with the minor patient's parent or other person without the patient's specific authorization.[facility] Social History Tobacco Use Types Packs/Day Years Used Date Smoking Tobacco: Never Assessed Social Connections Answer Date Recorded Connectedness 0 04/23/2024 Financial Resource Strain Answer Date R ecorded Financial Resource Strain 0 2021 Stress Answer Date Recorded Stress 0 12/18/2021 Physical Activity Answer Date Recorded Physical Activity 0 12/18/2021 Food Insecurity Answer Date Recorded Food 0 05/06/2024 Transportation Needs Answer Date Record ed Transportation 0 12/18/2021 Housing Stability Answer Date Recorded Housing 0 12/18/2021 Safety and Environment Answer Date Ronny rded Safety 0 12/18/2021 Utilities Answer Date Recorded Utilities 0 12/18/2021 Employment Answer Date Recorded Stress 0 04/23/2024 Comments Unknown Sex and Gender Information Value Date Recorded Sex Assigned at Not on file Legal Sex Female 10:30 AM PDT Gender Identity Not on file Sexual Orientation Not on file Plan of Treatment Not on file Insurance [place]
== END 2025-05-31 16:27 | disposition home or self-care (01) ==
LOC: HO.HSM 16:04
PROVIDERS: PCP Family Medicine; Visit Provider Registered Nurse
DX: G40.909 Epilepsy, unspecified, not intractable, without status epilepticus (principal); R42 Dizziness and giddiness; G43.909 Migraine, unspecified, not intractable, without status migrainosus
CPT/HCPCS: 99214

== ENCOUNTER → 2025-05-31 16:04 | Outpatient (BNVA) | payer MEDICAID, SELFPAY | PROVIDERS: PCP Family Medicine; Visit Provider Registered Nurse | DX: R42 Dizziness and giddiness (principal); G43.909 Migraine, unspecified, not intractable, without status migrainosus; G40.909 Epilepsy, unspecified, not intractable, without status epilepticus | CPT/HCPCS: 99212 ==